=== PATIENT | male | born 1965 | race Caucasian/White ===

== ENCOUNTER 2019-03-08 08:59 | Emergency (ER) | payer BC ==
[2019-03-08 09:30] VITALS: BP 148/63
--- NOTE | 2019-03-08 09:41 | UC ---
Lower Extremity/Ankle HPI - HPI Summary HPI Summary: This patient is a 53-year-old male who presents to the urgent care with chief complaint of pain on the right great toe extending to the right metatarsal area. Patient reports that this is similar symptoms as when he has a flareup of his gout. Patient denies any injury, any open wounds into the right foot.she denies any fevers or chills. He has no other complaints. - History of Current Complaint Chief Complaint: UCLowerExtremity Stated Complaint: GOUT FLARE UP Time Seen by Provider: 03/08/19 09:11 Hx Obtained From: Patient Onset/Duration: Gradual Onset Severity Initially: Mild Severity Currently: Mild Pain Intensity: 2 - Allergies/Home Medications Allergies/Adverse Reactions: Allergies Allergy/AdvReac Type Severity Reaction Status Date / Time morphine AdvReac Severe becomes Verified 03/08/19 09:30 violent/angry Home Medications: Home Medications Albuterol/Ipratropium RESP(NF) [Combivent Respimat (NF)] 1 aer IN QID PRN [History Confirmed 03/08/19] Atorvastatin* [Lipitor 10 MG*] 10 mg PO DAILY 03/08/19 [History Confirmed ] Esomeprazole(NF) [Nexium(NF)] 40 mg PO DAILY 03/08/19 [History Confirmed ] Metoprolol Tartrate TAB* [Lopressor TAB*] 25 - 50 mg PO BID 03/08/19 [History Confirmed 03/08/19] Olmesartan/Hydrochlorothiazide [Olmesartan-Hctz 40-25 mg Tab] 1 tab PO DAILY [History Confirmed 03/08/19] metFORMIN* [Glucophage 500 MG TAB *] 1,000 mg PO .QPM 03/08/19 [History Confirmed 03/08/19] PMH/Surg Hx/FS Hx/Imm Hx Previously Healthy: Yes Other Neurological History: GOUT Other History Of: Negative For: Anticoagulant Therapy - Surgical History Surgical History: Yes Surgery Procedure, Year, and Place: HERNIA REPAIR; tonsillectomy - Family History Known Family History: Positive: Cardiac Disease - Social History Alcohol Use: Weekly Alcohol Amount: 4-5 drinks Substance Use Type: None Smoking Status (MU): Current Every Day Smoker Type: Cigarettes Amount Used/How Often: 2 PPD Length of Time of Smoking/Using Tobacco: 25+ YEARS Have You Smoked in the Last Year: Yes Household Exposure Type: Cigarettes - Immunization History Most Recent Influenza Vaccination: 06/04/16 Most Recent Tetanus Shot: 2008 Most Recent Pneumonia Vaccination: 2010 Review of Systems All Other Systems Reviewed And Are Negative: Yes Constitutional: Positive: Negative Skin: Positive: Negative Eyes: Positive: Negative ENT: Positive: Negative Respiratory: Positive: Negative Cardiovascular: Positive: Negative Gastrointestinal: Positive: Negative Genitourinary: Positive: Negative Motor: Positive: Negative Neurovascular: Positive: Negative Musculoskeletal: Positive: Other: - Toe pain Neurological: Positive: Negative Psychological: Positive: Negative Is Patient Immunocompromised?: No Physical Exam - Summary Physical Exam Summary: VITAL SIGNS: Reviewed. GENERAL: Patient is a well developed and nourished male who is lying comfortably in the stretcher. Patient is not in any acute respiratory distress. HEAD AND FACE: No signs of trauma. No ecchymosis, hematomas or skull depressions. No sinus tenderness. EYES: PERRLA, EOMI x 2, No injected conjunctiva, no nystagmus. EARS: Hearing grossly intact. Ear canals and tympanic membranes are within normal limits. MOUTH: Oropharynx within normal limits. NECK: Supple, trachea is midline, no adenopathy, no JVD, no carotid bruit, no c- spine tenderness, neck with full ROM. CHEST: Symmetric, no tenderness at palpation LUNGS: Clear to auscultation bilaterally. No wheezing or crackles. CVS: Regular rate and rhythm, S1 and S2 present, no murmurs or gallops appreciated. ABDOMEN: Soft, non-tender. No signs of distention. No rebound no guarding, and no masses palpated. Bowel sounds are normal. EXTREMITIES: FROM in all major joints, positive right great toe and right first metatarsal area tenderness, nand erythema. NEURO: Alert and oriented x 3. No acute neurological deficits. Speech is normal and follows commands. SKIN: Dry and warm Triage Information Reviewed: Yes Appearance: Well-Appearing Vital Signs: Initial Vital Signs Temp 98.8 F 03/08/19 09:26 Pulse 70 03/08/19 09:26 Resp 16 03/08/19 09:26 BP 148/63 03/08/19 09:26 Pulse Ox 96 03/08/19 09:26 Lower Extremity Course/Dx - Course Course Of Treatment: In the urgent care course the patient is stable. He has slight swelling, erythema and tenderness at palpation of the right great toe and first metatarsal area. Therefore the patient was given a prescription for colchicine. Patient was given instructions that if the symptoms do not improve in 2 days he should return to the urgent care or go to the emergency room to rule out any type of infection. The patient understands and agrees. Patient is hemodynamically stable alert and oriented 3. - Differential Dx/Diagnosis Provider Diagnosis: Gout attack Discharge - Sign-Out/Discharge Documenting (check all that apply): Patient Departure All imaging exams completed and their final reports reviewed: No Studies - Discharge Plan Condition: Stable Disposition: HOME Prescriptions: Colchicine* [Colcrys*] 0.6 mg PO BID #14 tab Patient Education Materials: Gout (ED) Referrals: Quirino England MD [Primary Care Provider] - Additional Instructions: Take medications as instructed Increase your fluid intake F/U with PCP in the next 2-3 days Return to the UC if symptoms worsen - Billing Disposition and Condition Condition: STABLE Disposition: Home
== END 2019-03-08 09:45 | disposition home or self-care (01) ==
LOC: UCEAST 08:59
DX: M10.9 Gout, unspecified (principal); F17.210 Nicotine dependence, cigarettes, uncomplicated; Z88.5 Allergy status to narcotic agent
CPT/HCPCS: 99212; G0463

== ENCOUNTER 2019-03-26 01:52 | Emergency (ER) | payer BC ==
--- NOTE | 2019-03-26 03:45 | ED ---
Palpitations / Dysrhythmia - HPI Summary HPI Summary: Pt is a 53 y/o M presenting to the ED with a chief complaint of heart palpitations. He has hx of AFib and woke up around 0030 with the feeling like he was in AFib. Just as he was arriving around 0130, he experienced brief chest pressure that radiated up through his neck and to his ears, but it went away. Currently, he is not feeling palpitations, and he did not feel any dizziness, SOB, or diaphoresis. - History of Current Complaint Chief Complaint: EDDysrhythmPalp Time Seen by Provider: 03/26/19 03:15 Hx Obtained From: Patient Onset/Duration: Sudden Onset, Lasting Hours, Still Present Timing: Constant Severity Initially: Moderate Severity Currently: None Character: Irregular Aggravating: Nothing Alleviating: Nothing Associated Signs & Symptoms: Chest Pain - Allergy/Home Medications Allergies/Adverse Reactions: Allergies Allergy/AdvReac Type Severity Reaction Status Date / Time morphine AdvReac Severe becomes Verified 03/26/19 01:56 violent/angry PMH/Surg Hx/FS Hx/Imm Hx Previously Healthy: Yes Endocrine/Hematology History: Reports: Hx Diabetes - better w/ weight loss Denies: Hx Anticoagulant Therapy, Hx Thyroid Disease Cardiovascular History: Reports: Hx Hypercholesterolemia, Hx Hypertension, Other Cardiovascular Problems/Disorders - h/o afib, PVCS Denies: Hx Pacemaker/ICD Respiratory History: Reports: Hx Asthma, Hx Pneumonia, Other Respiratory Problems/Disorders - HX OF PNEUMONIA Denies: Hx Chronic Obstructive Pulmonary Disease (COPD) Comment Only: Hx Sleep Apnea - not diagnosed yet GI History: Reports: Hx Gastroesophageal Reflux Disease, Other GI Disorders - inguinal hernia 13 yrs [employer]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 [employer] Denies: Hx Ulcer History: Denies: Hx Renal Disease Musculoskeletal History: Reports: Hx Gout - R big toe last 2-3 yrs Neurological History: Reports: Hx Migraine Denies: Hx Dementia, Hx Seizures Psychiatric History: Reports: Hx Anxiety, Hx of Violent Episodes Against Others , Hx Substance Abuse Denies: Hx Eating Disorder - Cancer History Cancer Type, Location and Year: gout - Surgical History Surgery Procedure, Year, and Place: HERNIA REPAIR; tonsillectomy - Immunization History Date of Tetanus Vaccine: utd Date of Influenza Vaccine: utd Infectious Disease History: No Infectious Disease History: Reports: Hx Shingles, History 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 Disease - 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 Denies: Hx Hepatitis, Hx Human Immunodeficiency Virus (HIV), Hx Tuberculosis , Traveled Outside the [place] in Last 30 Days - Family History Known Family History: Positive: Cardiac Disease - Social History Alcohol Use: Weekly Alcohol Amount: 6-7 drinks per week Hx Substance Use: No Substance Use Type: Reports: None Hx Tobacco Use: Yes Smoking Status (MU): Heavy Every Day Tobacco Smoker Type: Cigarettes Amount Used/How Often: 2 PPD Length of Time of Smoking/Using Tobacco: 25+ YEARS Have You Smoked in the Last Year: Yes Review of Systems Negative: Skin Diaphoresis Positive: Palpitations, Chest Pain Negative: Shortness Of Breath Neurological: Negative - dizziness All Other Systems Reviewed And Are Negative: Yes Physical Exam - Summary Physical Exam Summary: Constitutional: Well-developed, Well-nourished, Alert. (-) Distressed Skin: Warm, Dry HENT: Normocephalic; Atraumatic Eyes: Conjunctiva normal Neck: Musculoskeletal ROM normal neck. (-) JVD, (-) Stridor, (-) Tracheal deviation Cardio: Rhythm regular, rate normal, Heart sounds normal; Intact distal pulses; The pedal pulses are 2+ and symmetric. Radial pulses are 2+ and symmetric. Pulmonary/Chest wall: Effort normal. (-) Respiratory distress, (-) Wheezes, (-) Rales Abd: Obese, soft, (-) tenderness, (-) Distension, (-) Guarding, (-) Rebound Musculoskeletal: (-) Edema Neuro: Alert, Oriented x3 Psych: Mood and affect Normal Triage Information Reviewed: Yes Vital Signs On Initial Exam: Initial Vitals Temp Pulse Resp BP Pulse Ox 97.1 F 61 16 117/77 94 03/26/19 01:54 03/26/19 01:54 03/26/19 01:54 03/26/19 01:54 03/26/19 01:54 Vital Signs Reviewed: Yes Diagnostics - Vital Signs Vital Signs Temp Pulse Resp BP Pulse Ox 03/26/19 03:26 69 17 128/63 94 03/26/19 03:00 81 16 91 03/26/19 02:56 88 17 115/65 92 03/26/19 02:31 95 12 117/72 94 03/26/19 02:26 103/70 03/26/19 02:05 83 15 92 03/26/19 01:56 84 17 117/77 93 03/26/19 01:54 97.1 F 61 16 117/77 94 - Laboratory Result Diagrams: 03/26/19 03:44 03/26/19 03:44 Lab Statement: Any lab studies that have been ordered have been reviewed, and results considered in the medical decision making process. - EKG 0154 Cardiac Rate: Other Rate - afib 88bpm EKG Rhythm: Atrial Fibrillation ST Segment: Normal Ectopy: None Summary of EKG Findings: EKG at 0154 shows atrial fibrillation at 88bpm and no STEMI. 0319 Cardiac Rate: NL - 66bpm EKG Rhythm: Sinus Rhythm ST Segment: Normal Ectopy: None Summary of EKG Findings: EKG at 0319 shows NSR at 66bpm with no STEMI. Course/Dx - Course Course Of Treatment: Pt is a 53 y/o M presenting to the ED with a chief complaint of heart palpitations. Just as he was arriving around 0130, he experienced brief chest pressure that radiated up through his neck and to his ears, but it went away. Currently, he is not feeling palpitations, and he did not feel any dizziness, SOB, or diaphoresis. EKG at 0154 shows atrial fibrillation at 88bpm and no STEMI. EKG at 0319 shows NSR at 66bpm with no STEMI. His troponin was negative, and his sodium is slightly elevated at 133. Pt will be signed out to Dr. Smith at 0700 on 03/26/19 pending second troponin. Patient was amenable Dr. Ennis the previous ER attending. He requested to follow up the second troponin is negative the patient can be safely discharged home with follow-up with PCP. The second troponin is 0.00, the patient is feeling better and has no complaints. The patient is hemodynamically stable therefore the patient will be discharged home with follow-up with PCP. - Diagnoses Provider Diagnoses: Palpitations Discharge - Sign-Out/Discharge Documenting (check all that apply): Sign-Out Patient Signing out patient TO: Bran Smith - Discharge Plan Condition: Stable Referrals: Quirino England MD [Primary Care Provider] - - Billing Disposition and Condition Condition: STABLE - Attestation Statements Document Initiated by Scribe: Yes Documenting Scribe: Lolly Godinez Provider For Whom Scribe is Documenting (Include Credential): Mahesh Bourne MD. Scribe Attestation: ILolly, scribed for Mahesh Bourne MD. on 03/26/19 at 0740. Scribe Documentation Reviewed: Yes Provider Attestation: The documentation as recorded by the scribe, Lolly Godinez accurately reflects the service I personally performed and the decisions made by me, Mahesh Bourne MD. Status of Scribe Document: Viewed
[2019-03-26 03:55] LABS: ABS Basophils 0.1 10^3/ul (0-0.2); ABS Eosinophils 0.2 10^3/ul (0-0.6); ABS Monocytes 0.6 10^3/ul (0-0.8); ABS Neutrophils 4.8 10^3/ul (1.5-7.7); Eosinophil % 1.8 %; Hematocrit 40 % (42-52); Hemoglobin 13.3 g/dL (14.0-18.0); Lymphocyte % 34.3 %; Mean Corpuscular HGB Conc 33 g/dL (31-36); Mean Corpuscular Hemoglobin 27 pg (27-31); Mean Corpuscular Volume 81 fL (80-94); Mean Platelet Volume 7.6 fL (7.4-10.4); Nucleated Red Blood Cells % 0.1; Platelet Count 291 10^3/uL (150-450); Red Blood Count 4.99 10^6 /uL (4.18-5.48); Red Cell Distribution Width 17 % (10-15); White Blood Count 8.7 10^3/uL (3.5-10.8)
[2019-03-26] MEDS ORDERED: Lactated Ringers 1000 ML Bag* 1,000 ML IV SCH (04:00)
[2019-03-26 04:10] LABS: BUN/Creatinine Ratio 12.7 (8-20); EGFR African American 77.5 (>60); EGFR Non-African American 64.1 (>60)
--- NOTE | 2019-03-26 07:42 | ED ---
Progress - Progress Note Progress Note: This patient was signed out from Dr. Bourne to Dr. Smith upon shift change at 07:00 03/26/19 pending second troponin. Second troponin is 0.00. The patient will be discharged and follow up with his PCP. The patient is agreeable with this plan. Course/Dx - Course Course Of Treatment: Patient was signed out from Dr. Bourne, the previous ER attending. He requested to follow up the second troponin, which is negative. The patient can be safely discharged home with follow-up with PCP. The second troponin is 0.00, the patient is feeling better and has no complaints. The patient is hemodynamically stable therefore the patient will be discharged home with follow-up with PCP. - Diagnoses Provider Diagnoses: Palpitations Discharge - Sign-Out/Discharge Documenting (check all that apply): Patient Departure - DC, Receiving Sign-Out Receiving patient FROM: Mahesh Bourne Patient Received Moderate/Deep Sedation with Procedure: No - Discharge Plan Condition: Stable Disposition: HOME Patient Education Materials: Heart Palpitations (DC) Referrals: Quirino England MD [Primary Care Provider] - (2-3 days) Additional Instructions: FOLLOW UP WITH YOUR PRIMARY CARE PROVIDER IN 2-3 DAYS. RETURN TO THE ED FOR ANY WORSENING OR NEW SYMPTOMS. - Billing Disposition and Condition Condition: STABLE Disposition: Home - Attestation Statements Document Initiated by Giacomo: Yes Documenting Scribe: Vish Kirkpatrick Provider For Whom Giacomo is Documenting (Include Credential): Bran Smith MD Scribe Attestation: Vish Canas scribed for Bran Smith MD on 03/26/19 at 0828. Scribe Documentation Reviewed: Yes Provider Attestation: The documentation as recorded by the Vish alexander accurately reflects the service I personally performed and the decisions made by me, Bran Smith MD Status of Scribglen Document: Viewed
[2019-03-26 07:53] VITALS: BP 124/80
== END 2019-03-26 07:53 | disposition home or self-care (01) ==
LOC: ED 01:52
DX: R00.2 Palpitations (principal); I48.91 Unspecified atrial fibrillation; E11.9 Type 2 diabetes mellitus without complications; I10 Essential (primary) hypertension; E78.00 Pure hypercholesterolemia, unspecified; Z88.5 Allergy status to narcotic agent; F17.210 Nicotine dependence, cigarettes, uncomplicated; Z79.01 Long term (current) use of anticoagulants; Z79.84 Long term (current) use of oral hypoglycemic drugs; Z79.899 Other long term (current) drug therapy
CPT/HCPCS: 36415; 80048; 84484; 85025; 93005; 96360; 99283

== ENCOUNTER 2023-02-03 10:37 | Observation (INO) ==
[2023-02-03 11:09] LABS: ABS Basophils 0.2 10^3/uL (0.0-0.1); ABS Eosinophils 0.2 10^3/uL (0.0-0.5); ABS Monocytes 0.8 10^3/uL (0.0-1.1); ABS Neutrophils 5.4 10^3/uL (1.5-7.6); ABS Nucleated RBC 0.01 10^3/ul; Eosinophil % 1.9 %; Hematocrit 39.5 % (38-53); Hemoglobin 13.4 g/dL (13.2-16.3); Lymphocyte % 23.5 %; Mean Corpuscular Hemoglobin 27.4 pg (27-33); Mean Corpuscular Volume 80.6 fL (80-97); Nucleated Red Blood Cells % 0.1 /100 WBC (0.0-0.4); Platelet Count 285 10^3/uL (150-450); Red Cell Distribution Width 16.7 % (12-17); White Blood Count 8.6 10^3/uL (3.6-10.2)
[2023-02-03 11:16] LABS: INR 1.35 (0.88-1.18)
[2023-02-03 12:02] LABS: Albumin 3.9 g/dL (3.2-5.2); Albumin/Globulin Ratio 1.4 (1-3); Calcium 9.3 mg/dL (8.6-10.3); Creatinine, Serum 1.11 mg/dL (0.67-1.17); Globulin 2.8 g/dL (2-4); Total Bilirubin 0.5 mg/dL (0.2-1.0); Total Protein 6.7 g/dL (6.4-8.9); eGFR CKD-EPI 76.5 (>60)
[2023-02-03 12:37] LABS: High Sensitivity Troponin 1 Hr 4 pg/mL (<20)
[2023-02-03 12:42] LABS: Potassium 4.5 mmol/L (3.5-5.0)
[2023-02-03] MEDS ORDERED: Albuterol HFA INHALER 8 gm MDI INH PRN (13:50)
[2023-02-03] MEDS ORDERED: Albuterol 2.5mg/3 ml (0.083%) NEB.SOLN INH PRN (13:50)
[2023-02-03] MEDS ORDERED: Dextrose 50% Syringe 50 ml 25 GM/50 ML SYRINGE IV PUSH PRN (15:29)
[2023-02-03 16:07] LABS: Magnesium 1.9 mg/dL (1.9-2.7); TSH Ultra Thyroid Stim Horm 0.96 mcIU/mL (0.34-5.60)
[2023-02-03 17:45] VITALS: BP 134/67
[2023-02-03] MEDS ORDERED: Albuterol/Ipratropium NEB.SOL (2.5/0.5 MG) 3 ML NEB.SOLN INH SCH (19:00)
[2023-02-03] MEDS ORDERED: Mometasone/Formoter 200/5 MDI INH SCH (19:00)
[2023-02-03] MEDS ORDERED: PROPAFENONE 325 MG PO SCH (21:00)
== END 2023-02-03 19:44 | disposition left against medical advice (07) ==
LOC: EDHOLD 10:37 → ED 10:37 → EDHOLD 17:44
PROVIDERS: ADMIT Hospitalist; ATTEND Hospitalist